=== PATIENT | female | born 1990 | race Caucasian/White ===

== ENCOUNTER 2024-07-31 09:50 | Emergency (ER) | payer MEDICAID ==
[~2024-07-31] VITALS: Ht 180.3 cm; Wt 80.5 kg
[2024-07-31] MEDS ORDERED: Ketorolac 30 MG/ML VIAL IM ONE (10:15)
[2024-07-31] MEDS ORDERED: Orphenadrine 60 MG/2ML AMP IM ONE (10:15)
[2024-07-31 10:38] LABS: BASO # 0.05 K/mm3 (0.02-0.10); EOS # 0.34 K/mm3 (0.04-0.40); EOS % 4.5 % (1.0-5.0); HEMOGLOBIN 12.7 g/dL (12.5-16.0); LYMPH# 1.99 K/mm3 (1.50-4.00); MEAN CELL VOLUME 93 fl (78-100); MEAN CORPUSCULAR HEMOGLOBIN 30 pg (27-31); MEAN CORPUSCULAR HGB CONC 32 g/dL (33-37); MEAN PLATELET VOLUME 10.4 fl (7.4-10.4); MONO # 0.37 K/mm3 (0.20-0.80); NEU # 4.75 K/mm3 (1.40-6.50); PLATELET COUNT 195 K/mm3 (130-400); RED BLOOD COUNT 4.31 M/mm3 (4.10-5.30); WHITE BLOOD COUNT 7.5 K/mm3 (4.8-10.8)
[2024-07-31 10:42] LABS: ALBUMIN 4.3 g/dL (3.5-5.0)
[2024-07-31 10:44] LABS: CALCIUM 9.2 mg/dL (8.3-10.5)
[2024-07-31 10:45] LABS: TOTAL PROTEIN 6.2 g/dL (6.4-8.3)
[2024-07-31 10:47] LABS: TOTAL BILIRUBIN 0.3 mg/dL (0.2-1.2)
[2024-07-31 11:08] VITALS: BP 116/79
[2024-07-31] MEDS ORDERED: CYCLOBENZAPRINE10 M1 PO (11:10)
== END 2024-07-31 11:18 | disposition home or self-care (01) ==
LOC: ED 09:50
PROVIDERS: Nurse Practitioner
DX: M54.12 Radiculopathy, cervical region (principal); Z87.891 Personal history of nicotine dependence
CPT/HCPCS: J1885; J2360